=== PATIENT | male | born 1945 | race Caucasian/White ===

== ENCOUNTER 2019-03-07 06:33 | Day surgery (SDC) ==
[2019-03-07] MEDS: TETRACAINE 0.5% UNIT-DOSE OP PRN ×3 (06:50→08:04)
[2019-03-07] MEDS: BETADINE OPTH PREP OP PRN ×2 (06:50→07:25)
[2019-03-07] MEDS: CYCLOGYL 2% OPTH OP PRN ×3 (06:51→07:01)
[2019-03-07] MEDS ORDERED: ZOFRAN 4 MG/2 ML IVP ONE (06:58)
[2019-03-07] MEDS ORDERED: LIDOCAINE 1% 20 ML MDV ID STA (06:58)
[2019-03-07 07:03] VITALS: TEMP 97.8
[2019-03-07] MEDS: BSS WITH EPINEPHRINE OP ONE ×2 (07:33→08:04)
[2019-03-07] MEDS: DEX-MOXI-KETOR OPTH INJ 1/0.5/0.4 MG/ML IO ONE ×2 (07:33→08:04)
[2019-03-07] MEDS: LIDOCAINE 1%/PHENYLEPHRINE 1.5% BSS (SURGERY) INTRAOCULA ONE ×2 (07:33→08:04)
[2019-03-07] MEDS ORDERED: SUBLIMAZE ONE (07:55)
[2019-03-07] MEDS ORDERED: ZOFRAN 4 MG/2 ML ONE (07:55)
[2019-03-07] MEDS ORDERED: DIPRIVAN 20 ML VIAL IVP ONE (07:55)
[2019-03-07] MEDS ORDERED: VERSED ONE (07:55)
[2019-03-09 09:11] VITALS: BP 132/78
== END 2019-03-07 08:55 | disposition home or self-care (01) ==
LOC: SURG 06:33
PROVIDERS: ATTEND Ophthalmology
DX: H25.12 Age-related nuclear cataract, left eye (principal)

== ENCOUNTER 2019-03-23 06:08 | Day surgery (SDC) ==
[2019-03-23] MEDS: TETRACAINE 0.5% UNIT-DOSE OP PRN ×2 (06:16→07:18)
[2019-03-23] MEDS: BETADINE OPTH PREP OP PRN ×2 (06:16→07:20)
[2019-03-23] MEDS: CYCLOGYL 2% OPTH OP PRN ×3 (06:17→06:26)
[2019-03-23] MEDS ORDERED: BSS WITH EPINEPHRINE OP ONE (06:32)
[2019-03-23] MEDS ORDERED: DEX-MOXI-KETOR OPTH INJ 1/0.5/0.4 MG/ML IO ONE (06:32)
[2019-03-23] MEDS ORDERED: LIDOCAINE 1%/PHENYLEPHRINE 1.5% BSS (SURGERY) INTRAOCULA ONE (06:32)
[2019-03-23] MEDS ORDERED: LIDOCAINE 1% 20 ML MDV ID STA (06:32)
[2019-03-23] MEDS ORDERED: ZOFRAN 4 MG/2 ML IVP ONE (06:32)
[2019-03-23 06:37] VITALS: TEMP 97.3
[2019-03-23] MEDS ORDERED: ZOFRAN 4 MG/2 ML ONE (07:26)
[2019-03-23] MEDS ORDERED: SUBLIMAZE ONE (07:26)
[2019-03-23] MEDS ORDERED: VERSED ONE (07:26)
[2019-03-28 16:21] VITALS: BP 120/72
== END 2019-03-23 08:15 | disposition home or self-care (01) ==
LOC: SURG 06:08
PROVIDERS: ATTEND Ophthalmology
DX: H25.11 Age-related nuclear cataract, right eye (principal)